=== PATIENT | male | born 1950 | race African-American/Black ===

== ENCOUNTER 2024-08-21 06:45 | Emergency (ER) | payer MEDICARE ==
[~2024-08-21] VITALS: Ht 172.7 cm; Wt 65.0 kg
[2024-08-21 07:03] VITALS: O2SAT 98
[2024-08-21] MEDS ORDERED: MEMA5TAB16 PO (07:09)
[2024-08-21] MEDS ORDERED: LOSA25TA26 PO (07:09)
[2024-08-21] MEDS ORDERED: DONE-51 PO (07:09)
[2024-08-21 08:35] LABS: BASOPHILS % 0.3 % (0.0-2.0); EOSINOPHILS % 0.1 % (0.0-5.0); HEMATOCRIT. 43.7 % (42.0-52.0); HEMOGLOBIN. 14.3 g/dL (14.0-18.0); LYMPHOCYTES % 10.8 % (20.0-50.0); MEAN CORPUSCULAR HEMOGLOBIN 30.1 pg (28.0-32.0); MEAN CORPUSCULAR HGB CONC 32.7 g/dL (31.0-37.0); MEAN CORPUSCULAR VOLUME 92.3 fL (80.0-94.0); MEAN PLATELET VOLUME 8.2 fl (7.4-10.4); MONOCYTES % 2.9 % (2.0-8.0); NEUTROPHILS % 85.9 % (40.0-76.0); PLATELET 227 x1000/uL (130-400); RED BLOOD CELL COUNT 4.74 mill/uL (4.7-6.1); RED CELL DISTRIBUTION WIDTH 14.4 % (11.6-14.6)
[2024-08-21 08:46] LABS: CARBON DIOXIDE 27 mEq/L (21-32); CHLORIDE 105 mEq/L (98-107); POTASSIUM 3.6 mEq/L (3.5-5.1); SODIUM 139 mEq/L (136-145)
[2024-08-21 08:47] LABS: CALCIUM 9.2 mg/dL (8.7-10.4)
[2024-08-21 08:51] LABS: CREATININE 0.9 mg/dL (0.6-1.3); PROTHROMBIN TIME 11.1 sec (9.6-11.0)
[2024-08-21 08:52] LABS: GLUCOSE 122 mg/dL (70-105); TROPONIN I HIGH SENSITIVITY 4 ng/L (3.0-53); UREA NITROGEN BLOOD 5 mg/dL (9-23)
[2024-08-21 08:53] LABS: ALANINE AMINOTRANSFERASE 14 IU/L (10-49); ASPARTATE AMINOTRANSFERASE 17 IU/L (<34)
[2024-08-21 08:54] LABS: ALBUMIN 4.5 g/dL (3.2-4.8); BILIRUBIN DIRECT 0.4 mg/dL (<=3.0); BILIRUBIN TOTAL 1.8 mg/dL (0.1-1.0); PROTEIN TOTAL 6.9 g/dL (6.0-8.3)
[2024-08-21 10:08] LABS: TROPONIN I HIGH SENSITIVITY 6 ng/L (3.0-53)
[2024-08-21 12:00] VITALS: BP 175/82; PULSE 55; RESP 14; TEMP 36.7; O2SAT 99
== END 2024-08-21 12:15 | disposition home or self-care (01) ==
LOC: ER 06:45
DX: R11.2 Nausea with vomiting, unspecified (principal); E78.00 Pure hypercholesterolemia, unspecified; I10 Essential (primary) hypertension; Z95.0 Presence of cardiac pacemaker; Z79.899 Other long term (current) drug therapy
CPT/HCPCS: 36415; 80048; 80076; 84484; 85025; 93005; 99283; 99284; A4606